=== PATIENT | female | born 1970 | race Caucasian/White ===

== ENCOUNTER 2021-10-11 19:56 | Emergency (ER) | payer OTHER, BC ==
[~2021-10-11] VITALS: Ht 175.3 cm; Wt 90.7 kg
[2021-10-11] MEDS ORDERED: BUSPIRONE HCL7.5 MG PO (20:12)
[2021-10-11] MEDS ORDERED: ZESTRIL10 M1 PO (20:12)
== END 2021-10-11 23:51 | disposition home or self-care (01) ==
LOC: ER 19:56
DX: R51.9 Headache, unspecified (principal); R41.82 Altered mental status, unspecified; I10 Essential (primary) hypertension; Z88.5 Allergy status to narcotic agent; Z88.0 Allergy status to penicillin